=== PATIENT | female | born 1940 | race Caucasian/White ===

== ENCOUNTER 2016-11-03 19:42 | Emergency (ER) | payer MEDICARE ==
[~2016-11-03] VITALS: Ht 154.9 cm; Wt 77.3 kg
[2016-11-03 19:51] VITALS: BP 172/93; PULSE 92; RESP 20; O2SAT 95
[2016-11-03] MEDS ORDERED: Albuterol-Ipratropium 3 mL Inhalation Solution ONE (20:16)
--- NOTE | 2016-11-03 20:29 | DRSVH ---
PROCEDURE: X-RAY LEFT WRIST COMPLETE, MINIMUM THREE VIEWS ([id number]) INDICATIONS: tripped and fell TECHNIQUE: 4 views of the wrist were acquired. COMPARISON: None. FINDINGS: Bones: No fractures or dislocations. No suspicious bony lesions. Scaphoid view: Negative. Soft tissues: No suspicious soft tissue calcifications. IMPRESSION: No acute fracture. No osseous lesion. If clinical suspicion and/or symptoms persist, fur ther assessment with repeat plainfilms, or advanced imaging (e.g., CT, MRI, or bone scan) may be help ful for further assessment. Dictated by: Frances Gee M.D. on 11/03/2016 at 20:27 Approved by: Frances Gee M.D. on 11/03/2016 at 20:28
--- NOTE | 2016-11-03 20:30 | DRSVH ---
PROCEDURE: X-RAY LEFT ELBOW COMPLETE, MINIMUM THREE VIEWS ([id number]) INDICATIONS: tripped and fell TECHNIQUE: 3 views of the elbow were acquired. COMPARISON: None. FINDINGS: Bones: There is a moderately displaced and angulated fracture of the radial head/neck. Soft tissues: There is an elbow joint effusion. No suspicious soft tissue calcifications. IMPRESSION: Radial head/neck fracture as above. Dictated by: Frances Gee M.D. on 11/03/2016 at 20:28 Approved by: Frances Gee M.D. on 11/03/2016 at 20:29
--- NOTE | 2016-11-03 20:36 | ED.REPORT ---
HPI-Trauma Minor / Fall Date of Service Nov 03, 2016 ED Provider: Gera Beach MD A 75 year old female not on anticoagulants with a history of hypertension, asthma, and a pituitary tumor presents to the ED with left arm and elbow pain after a mechanical ground level fall around 20:00 this evening. The patient hit her head but did not lose consciousness. She denies headache, nausea, vomiting, confusion, additional injury/trauma, or other symptoms at this time. Nursing Notes Stated Complaint: GLF/ LEFT ARM PAIN Chief Complaint: Extremity Trauma Nursing Notes Reviewed: Yes Allergies: Coded Allergies: No Known Allergies (Unverified , 11/03/16) Scheduled PRN Hydrocodone-Acetaminophen 5-325 mg (Hydrocodone-Acetaminophen 5-325 mg) 1 Each Tablet 1 TABLET PO Q4H PRN PRN For Pain General Time Seen by MD: 20:35 Chief Complaint Fall, Other (Left Arm Pain) Hx Obtained From: Patient Arrived By: Walk-in Onset Occurred: 1 - 4 hours ago Symptom Duration: Since onset Caused by: Fall on ground Location: Arm left Quality: Painful Severity: Current: Moderate Severity: Maximum: Moderate Pertinent Negative: Relieved by nothing Context: Immunizations Unknown Recent Healthcare: No recent doctor visit Past Medical History Past Medical History Hypertension Asthma Pituitary tumor Past Surgical History Bilateral knees Reports: Appendectomy, Hysterectomy, Tonsillectomy Smoking History Unknown if Ever Smoker Social History Other Social History: Good social support, , From out of town, Visiting locally Ambulatory Status Independent Review of Systems Constitutional: Denies: Fever Respiratory: Denies: Non-productive cough, Shortness of breath Musculoskeletal: Reports: Extremity pain (Left arm), Joint pain (Left Elbow) Neurologic: Denies: Change LOC, Confusion, Headache Complete sys rev & neg: except as marked. GI: Denies: Nausea, Vomiting Physical Exam Initial Vital Signs Vital Signs (First) Date Time Temp Pulse Resp B/P Pulse Ox O2 Delivery O2 Flow Rate FiO2 11/03/16 19:51 36.4 92 20 172/93 95 11/03/16 22:00 Room Air Initial VS: Reviewed Skin: Warm, Dry, No cyanosis Psychiatric: Mood/affect normal, Behavior normal, Normal thought content General/Constitutional: Awake, Alert Neck: Supple, Full range of motion, Non-tender, No midline vertebral tend Head / Eyes: Atraumatic, Normocephalic ENT: Atraumatic, Airway patent, Mucous membranes moist Respiratory / Chest: Breath sounds NL, Breath sounds = bilat, No respiratory distress Cardiovascular: Heart rate NL, Regular rhythm, Heart sounds NL, No gallop, No murmurs, No rubs, Peripheral circulation NL (Good radial pulses) Abdomen: Soft, Non-tender, No distention Back: Atraumatic, Inspection NL, No midline vertebral tend Upper Extremity / MS: Atraumatic, Neurologic intact (Sensation intact to bilateral fingertips), Vascular intact (To fingertips ) Left Elbow: Positive: Swelling present... (Mild), Tender radial head... ( Moderate) Patient is holding her left elbow in 90 degree flexion Forearm compartments intact Lower Extremity / Pelvis / MS: Atraumatic, Inspection NL Neurologic: Oriented X3, Speech NL, No motor deficits, No sensory deficits Interpretation & Diagnostics X-Ray Interpretation Xray Interpretation: IMPRESSION: No acute fracture. No osseous lesion. If clinical suspicion and/or symptoms persist, further assessment with repeat plainfilms, or advanced imaging (e.g., CT, MRI, or bone scan) may be helpful for further assessment. Dictated by: Frances Gee M.D. on 11/03/2016 at 20:27 Study Performed: 4 view X-Ray Ordered: Wrist left Interpretation / Wet Read by: Interpret - Radiologist Xray Interpretation: IMPRESSION: Radial head/neck fracture as above. Dictated by: Frances Gee M.D. on 11/03/2016 at 20:28 Study Performed: 3 view X-Ray Ordered: Elbow left Interpretation / Wet Read by: Interpret - Radiologist Re-Eval/Medical Decision Med Decision/Clinical Course A 75 year old female not on anticoagulants with a history of hypertension, asthma, and a pituitary tumor presents to the ED with left arm and elbow pain after a mechanical ground level fall around 20:00 this evening. The patient hit her head but did not lose consciousness. She denies headache, nausea, vomiting, confusion, additional injury/trauma, or other symptoms at this time. Here in the emergency department the patient is afebrile, hemodynamically stable and in no apparent distress. No objective findings of significant head trauma. Normal mentation and normal neurologic examination. I do not feel that neuro imaging is indicated. Moreover, the patient is not on any blood thinners. Left Wrist: IMPRESSION: No acute fracture. No osseous lesion. If clinical suspicion and/or symptoms persist, further assessment with repeat plainfilms, or advanced imaging (e.g., CT, MRI, or bone scan) may be helpful for further assessment. Dictated by: Frances Gee M.D. on 11/03/2016 at 20:27 Left Elbow: IMPRESSION: Radial head/neck fracture as above. Dictated by: Frances Gee M.D. on 11/03/2016 at 20:28 Given the above findings patient placed in a long-arm posterior splint with sling. Patient remained neurovascularly intact thereafter. She is referred to orthopedic surgery. She will call next week to arrange appointment. Prior to discharge follow-up and return precautions were reviewed in detail with the patient who verbalized understanding and agreement with the plan. The patient was discharged in stable condition. Source of Hx: Old records Re-Evaluation/Progress : Time of Eval: 21:00 Patient Status: Condition improved Re-Evaluation/Progress Note: Discussed with patient x-ray results, diagnosis, and plan for discharge. Follow-up and return to the ER instructions given. Patient agrees with plan for care and all questions were addressed. Counseled Regarding: Diagnosis, Need for follow-up, When/why to return to ED Discharge & Departure Impression: Primary Impression: Radial fracture Encounter type: initial encounter Radius location: head Fracture type: closed Fracture alignment: displaced Laterality: left Qualified Code: S52.122A - Displaced fracture of head of left radius, initial encounter for closed fracture Additional Impression: Fall from ground level Disposition: Home Discharge Condition All VS Reviewed: Yes Condition: Improved Patient Instructions: Elbow Fracture in Adults (ED), Splint Care (ED) Additional Instructions: Thank you for seeking care at the emergency room. It is difficult for us to make definitive diagnoses in the ED but we believe that you are experiencing an elbow fracture. Our primary goal today in the ED was to evaluate you for any life-threatening conditions. Your evaluation was reassuring. You will be discharged with a prescription for pain medication. Keep your splint dry as much as possible. You should follow-up with your primary doctor in the next week. Also follow-up with the orthopedist next week. You should return to the ED immediately if you develop fevers, vomiting, cough, shortness of breath, chest pain, lightheadedness, weakness or any other concerning signs or symptoms. Thank you for letting us partake in your care today. Referrals: Tung Plascencia DO [facility] Scribe Attestation Portions of this note were transcribed by Lisbet Leung. I, Dr. Beach, personally performed the history, physical exam, and medical decision-making; I reviewed and confirmed the accuracy of the information in the transcribed note. Signed by: Mustapha Rock, 11/03/2016, 22:37 copies to: Tung Plascencia DO; [facility] Gera Beach MD Nov 03, 2016 20:36 LISBET LEUNG Nov 03, 2016 21:25
[2016-11-03] MEDS ORDERED: HYDR-4003 PO (21:31)
[2016-11-03 22:00] VITALS: BP 172/104; PULSE 99; RESP 18; O2SAT 94
== END 2016-11-03 22:00 | disposition home or self-care (01) ==
LOC: SED 19:42
DX: S52.122A Displaced fracture of head of left radius, initial encounter for closed fracture (principal); S52.132A Displaced fracture of neck of left radius, initial encounter for closed fracture; W01.0XXA Fall on same level from slipping, tripping and stumbling without subsequent striking against object, initial encounter; Y93.89 Activity, other specified; Y92.009 Unspecified place in unspecified non-institutional (private) residence as the place of occurrence of the external cause; Y99.8 Other external cause status; I10 Essential (primary) hypertension; J45.909 Unspecified asthma, uncomplicated
CPT/HCPCS: 73080; 73110; 99284; J7620